=== PATIENT | female | born 1960 | race Caucasian/White ===

== ENCOUNTER 2020-07-14 13:47 | Emergency (ER) | payer OTHER ==
[~2020-07-14] VITALS: Ht 152.4 cm; Wt 71.2 kg
[2020-07-14 13:58] VITALS: BP 150/71
--- NOTE | 2020-07-14 13:58 | NUR ---
Pt ambulated to bed 01 with steady gait
--- NOTE | 2020-07-14 14:08 | NUR ---
Pt c/o epigastric pain that radiates to right lower quadrant and back since today. Denies Nausea/vomiting/diarrhea. medhx: denies. SKIN IS PINK/WARM/DRY; AAOX4 WITH EVEN AND STEADY GAIT; LUNGS CLEAR BL; HR EVEN AND REGULAR; PT DENIES ANY FEVER, CP, SOB, OR COUGH AT THIS TIME; PATIENT STATES PAIN OF 7/10 AT THIS TIME; VSS; PATIENT POSITIONED FOR COMFORT; HOB ELEVATED; BEDRAILS UP X1; BED DOWN. ER MD MADE AWARE OF PT STATUS.
[2020-07-14] MEDS ORDERED: DICYCLOMINE 10 MG CAP PO STA (14:54)
[2020-07-14] MEDS ORDERED: FAMOTIDINE 20 MG TAB PO STA (14:54)
[2020-07-14 15:20] LABS: BASOPHILS % (AUTO) 0.4 % (0.0-2.0); EOSINOPHILS # (AUTO) 0.2 K/uL (0-0.4); EOSINOPHILS % (AUTO) 2.3 % (0.0-4.0); HEMOGLOBIN 11.9 g/dL (12.0-16.0); LYMPHOCYTES % (AUTO) 28.7 % (20.5-51.1); MEAN CORPUSCULAR HEMOGLOBIN 31 pg (27-31); MEAN CORPUSCULAR HGB CONC 34 g/dL (33-37); MONOCYTES # (AUTO) 0.5 K/uL (0.8-1.0); MONOCYTES % (AUTO) 7.7 % (1.7-9.3); NEUTROPHILS # (AUTO) 4.2 K/uL (1.8-7.7); NEUTROPHILS % (AUTO) 60.9 % (42.2-75.2); PLATELET COUNT (AUTO) 224 K/uL (140-450); RED BLOOD CELL COUNT(AUTO) 3.84 MIL/uL (4.20-5.40); RED CELL DISTRIBUTION WIDTH 13.2 % (11.6-13.7); WHITE BLOOD COUNT (AUTO) 6.9 K/uL (4.8-10.8)
[2020-07-14 15:32] LABS: ALBUMIN 4.3 g/dL (3.4-5.0); ANION GAP 13.7 (8-16); CREATININE 1.3 mg/dL (0.6-1.3); POTASSIUM 4.7 mmol/L (3.5-5.1); TOTAL BILIRUBIN 0.3 mg/dL (0.0-1.0)
[2020-07-14 17:16] VITALS: BP 146/77
--- NOTE | 2020-07-14 17:17 | NUR ---
Patient discharged with v/s stable. Written and verbal after care instructions given and explained. Patient alert, oriented and verbalized understanding of instructions. Ambulatory with steady gait. All questions addressed prior to discharge. ID band removed. Patient advised to follow up with PMD. Rx of RANITIDINE given. Patient educated on indication of medication including possible reaction and side effects. Opportunity to ask questions provided and answered.
== END 2020-07-14 17:17 | disposition home or self-care (01) ==
LOC: MED 13:47
DX: K21.9 Gastro-esophageal reflux disease without esophagitis (principal)
CPT/HCPCS: 36415; 76705; 80053; 82150; 83690; 85025; 99284; Q0092

== ENCOUNTER 2020-08-02 07:52 | Day surgery (SDC) | payer OTHER, SELFPAY ==
[~2020-08-02] VITALS: Ht 154.9 cm; Wt 71.7 kg
[2020-08-02] MEDS ORDERED: fentaNYL citrate 0.05 MG/ML VIAL ONE (09:32)
[2020-08-02] MEDS ORDERED: LIDOCAINE 2% 100 MG/5 ML UJET TP ONE (09:32)
[2020-08-02] MEDS ORDERED: fentaNYL citrate 0.05 MG/ML VIAL IVP ONE (14:55)
== END 2020-08-02 10:45 | disposition home or self-care (01) ==
LOC: MMU 07:52 → MDS 07:52
PROVIDERS: ATTEND Internal Medicine Gastroenterology
DX: Z12.11 Encounter for screening for malignant neoplasm of colon (principal); E11.9 Type 2 diabetes mellitus without complications; Z79.84 Long term (current) use of oral hypoglycemic drugs; Z79.82 Long term (current) use of aspirin; Z79.899 Other long term (current) drug therapy; Z98.890 Other specified postprocedural states; Z20.828 Contact with and (suspected) exposure to other viral communicable diseases
CPT/HCPCS: 45378; J3010; U0003

== ENCOUNTER 2022-07-11 20:10 | Emergency (ER) | payer OTHER ==
[~2022-07-11] VITALS: Ht 157.5 cm; Wt 63.5 kg
[2022-07-11 20:25] VITALS: BP 129/90
--- NOTE | 2022-07-11 20:28 | NUR ---
TO LOBBY A/W BED AMBULATORY
--- NOTE | 2022-07-11 21:21 | NUR ---
PT TO BED 12
--- NOTE | 2022-07-11 21:32 | NUR ---
DR CALL EXAMINING P T
[2022-07-11] MEDS ORDERED: ONDANSETRON 4 MG ODT PO ONE (21:45)
[2022-07-11] MEDS ORDERED: CIPR500T4 PO (22:00)
[2022-07-11] MEDS ORDERED: IBUP-2213 PO (22:00)
[2022-07-11] MEDS ORDERED: ONDA8TAB87 PO (22:00)
[2022-07-11 22:20] VITALS: BP 122/88
--- NOTE | 2022-07-11 22:20 | NUR ---
Patient discharged with v/s stable. Written and verbal after care instructions given and explained. Patient alert, oriented and verbalized understanding of instructions. Ambulatory with steady gait. All questions addressed prior to discharge. ID band removed. Patient advised to follow up with PMD. Rx of CIPRO, ZOFRAN, IBUPROFEN given. Patient educated on indication of medication including possible reaction and side effects. Opportunity to ask questions provided and answered.
== END 2022-07-11 22:20 | disposition home or self-care (01) ==
LOC: MED 20:10
DX: R42 Dizziness and giddiness (principal); N39.0 Urinary tract infection, site not specified; R11.0 Nausea; E11.9 Type 2 diabetes mellitus without complications; Z79.899 Other long term (current) drug therapy; Z79.1 Long term (current) use of non-steroidal anti-inflammatories (NSAID); Z79.2 Long term (current) use of antibiotics
CPT/HCPCS: 81002; 99283; Q0162